=== PATIENT | female | born 1985 | race Caucasian/White ===

== ENCOUNTER 2020-06-30 08:09 | Outpatient (REF) | payer MEDICAID, SELFPAY ==
--- NOTE | 2020-06-30 | US_ITS ---
EXAMINATION: US ABDOMEN COMPLETE CLINICAL INFORMATION: Epigastric pain. COMPARISON: None TECHNIQUE: Real-time imaging of the abdominal viscera. FINDINGS: PANCREAS: Normal. ABDOMINAL AORTA: The proximal, mid, and distal segments are normal in caliber. INFERIOR VENA CAVA: Visualized portions are normal. LIVER: Normal. The liver is normal in size. The liver contour is normal. Parenchymal echogenicity is normal. No focal hepatic lesion. There is no intrahepatic biliary duct dilatation seen. GALLBLADDER: Normal. The gallbladder is physiologically distended without evidence of stones, sludge, polyps, wall thickening or pericholecystic fluid. COMMON BILE DUCT: Normal in caliber measuring 0.5 cm in diameter. RIGHT KIDNEY: Normal. No hydronephrosis. No renal calculi or focal parenchymal lesions. The kidney measures 10.6 cm in maximum dimension. LEFT KIDNEY: Normal. No hydronephrosis. No renal calculi or focal parenchymal lesions. The kidney measures 9.4 cm in maximum dimension. SPLEEN: Normal. The spleen measures 10.5 cm in maximum dimension. FREE FLUID: None. US/US abdomen complete IMPRESSION: Unremarkable complete abdomen ultrasound.
== END 2020-06-30 08:10 | disposition home or self-care (01) ==
LOC: HO.US 08:09
PROVIDERS: Visit Provider Internal Medicine
DX: R10.13 Epigastric pain (principal)
CPT/HCPCS: 76700

== ENCOUNTER 2023-03-14 11:54 | Emergency (ER) | payer MEDICAID, SELFPAY ==
--- NOTE | 2023-03-14 11:57 | ED_ITS ---
HPI - General Adult General Chief complaint: Upper Respiratory Symptoms Stated complaint: SOB/chest tightness/body aches Time Seen by Provider: 03/14/23 14:18 Source: patient Mode of arrival: ambulatory Limitations: no limitations History of Present Illness HPI narrative: Patient is a 37 year old assigned female at with no reported medical history presenting to the emergency department today with a cough and body aches. Patient states that over the last 6 days she has had a cough and body aches. Patient denies any dizziness, lightheadedness, abdominal pain, nausea, vomiting, fever, chills, blurry vision, double vision, loss of vision, chest pain, difficulty breathing, shortness of breath, back pain, night sweats, pain with urination, increased urinary frequency, increased urinary urgency, blood in her urine or stool, syncope or a near syncopal episode, recent trauma or falls, bowel incontinence, bladder incontinence, bowel retention, bladder retention, or any other complaints at this time. Onset (ago): day(s) (6) Severity: mild Severity scale (1-10): 3 Quality: aching Pain Consistency: constant Relieving factors: none Exacerbating factors: none Associated symptoms: cough Treatments prior to arrival: none Related Data Previous Rx's Medication Instructions Recorded benzonatate 100 mg capsule 100 mg PO BID PRN cough 7 days #14 03/14/23 caps Allergies Allergy/AdvReac Type Severity Reaction Status Date / Time No Known Allergies Allergy Verified 03/14/23 11:57 [No Known Allergies*] Review of Systems Constitutional: Constitutional: Reports no additional constitutional complaints, Reports body ache(s), Denies chills, Denies fever(s) and Denies night sweats Eyes: Eyes: Reports no additional eye complaints, Denies blurry vision, Denies change in vision, Denies diplopia, Denies eye discharge, Denies loss of vision and Denies eye pain ENT: Denies dizziness Cardiovascular: Cardiovascular: Reports no additional cardiovascular c omplaints, Denies chest pain, Denies lightheadedness, Denies Loss of Consciousness and Denies dyspnea Respiratory: Respiratory: Reports no additional respiratory complaints, Reports cough and Denies dyspnea Gastrointestinal: Gastrointestinal: Reports no additional gastrointestinal complaints, Denies abdominal pain, Denies melena, Denies hematochezia, Denies change in bowel habits and Denies change in stool character Genitourinary: Genitourinary: Denies hematuria, Denies urinary frequency, Denies dysuria, Denies urinary incontinence, Denies urinary hesitancy and Denies urinary urgency Musculoskeletal: Musculoskeletal: Reports no additional musculoskeletal complaints, Denies numbness and Denies tingling Neurologic: Denies dizziness, Denies loss of vision, Denies numbness and Denies tingling Psychiatric: Psychiatric: Reports no additional psychiatric complaints Endocrine: Endocrine: Reports no additional endocrine complaints Hematologic/Lymphatic: Hematologic/Lymphatic: Reports no additional hematologic/lymphatic complaints Allergic/Immunologic: Allergic/Immunologic: Reports no additional allergic/immunologic complaints [facility] Past Medical History Attestation statement: The following information was validated with the patient. Source: old records reviewed and nursing notes reviewed Social History Social History Advance Directives: No Advance Directives Information Provided: Yes Physical Exam ED Vital Signs: Vital Signs - 24 hr 03/14/23 11:58 Temperature 99.1 F Pulse Rate 99 Respiratory Rate 19 Blood Pressure 123/75 Pulse Oximetry 99 BMI result Body Mass Index 27.4 Const General: cooperative, no acute distress, alert and awake Nutritional Appearance: well nourished Orientation/consciousness: patient oriented x3 Limitations: no limitations HENMT Head: Yes normal to inspection and Yes atraumatic Ears: hearing grossly normal bilaterally and external ears normal General nose exam: Normal external nose present, no nasal discharge noted and no epistaxis Face and sinus: Yes normal facial exam, No abrasion and No laceration Mouth: Normal oral and palatal mucosa present, no drooling and no muffled voice Eyes General: appearance normal, both eyes and all related structures Periorbital: periorbital findings normal Eyelids: Yes eyelids normal Conjunctivae: conjunctivae normal Pupils: Equal, round and reactive pupils present EOM: EOMs intact bilaterally Neck Neck: Yes normal visual inspection, Yes full ROM and Yes no lymphadenopathy Chest Chest palpation & inspection: normal inspection of the chest Resp Effort & Inspection: normal respiratory effort and able to speak in complete sentences Auscultation: clear to auscultation bilaterally GI Inspection: Yes normal to inspection Neuro General: patient oriented x3 and moves all extremities Cranial nerves: Yes Equal, round and reactive pupils present Cognition (Neuro): normal cognition Motor exam (neuro): 5/5 motor strength present throughout Sensory Exam: Normal double simultaneous stimulation for sensation Coordination: [id number] test normal Extrem General: Yes normal to inspection, Yes full ROM and Yes capillary refill normal Psych Appearance: grossly normal Mental Status: mental status grossly normal Affect: normal affect Attitude: cooperative Thought process: Normal thought process present Thought content: Normal thought content present Insight: Good insight present (Psych) Course Course Course Narrative: This is an RME: Additional HPI, ROS, PE not included below will be deferred to primary provider. Patient is a 37 year old female with no PMH presents with 6 days of body aches, sore throat, and headache behind her eyes. Patient reports worsening dry cough and pain with breathing. Plan: labs, imaging Medical Decision Making Medical Decision Making [facility] Narrative: Patient is a 37 year old assigned female at with no reported medical history presenting to the emergency department today with a cough and body aches . Patient's physical exam was unremarkable. Patient's blood work was unremarkable. Patient's rapid COVID-19 test was negative. Patient's Influenza test was positive. Patient's EKG was unremarkable. I explained my physical exam findings as well as all test results to the patient. I answered all questions asked by the patient. I stressed the importance of the patient taking her medication as prescribed. I stressed the importance of the patient following up with her primary care provider. I stressed the importance of the patient returning to the emergency department immediately if her symptoms were to worsen or if she were to develop any dizziness, shortness of breath, difficulty breathing, chest pain, blurry vision, loss of vision, nausea, vomiting, abdominal pain, fever, chills, back pain, or any other complaints. Patient verbalized agreement and understanding with this treatment plan and discharge. Differential Diagnosis Differential Diagnoses: The differential diagnosis associated with the presentation includes COVID-19 Influenza CAP Viral illness URI Admission/Observation Consideration of admission/observation: Escalation of care including admiss ion/observation considered Patient would have been admitted to the hospital had her work up had any findings where hospital admission was appropriate and her clinical presentation warranted hospital admission. Lab Data [facility] Lab Attestation statement: I reviewed the patient's lab results. My interpretation of these studies and their corresponding values is that they are grossly normal. 03/14/23 12:12 03/14/23 12:12 Labs: Lab Results 03/14/23 03/14/23 03/14/23 Range/Units 12:12 12:12 12:12 WBC 8.6 (4.8-10.8) X10*3/uL RBC 4.23 (4.20-5.50) X10*6/uL Hgb 12.0 (12.0-16.0) g/dl Hct 36.4 L (37.0-47.0) % MCV 86.1 (80.0-98.0) fL MCH 28.4 (27.0-33.0) pg MCHC 33.0 (31.0-35.0) g/dl RDW 12.7 (11.0-16.0) % Plt Count 218 (160-400) X10*3/uL MPV 9.1 L (9.4-12.3) fL Immature Gran % (Auto) 0.2 (0.0-0.4) % Neut % (Auto) 83.9 H (45-73) % Lymph % (Auto) 11.9 L (20-40) % [place] % (Auto) 3.7 (2-11) % Eos % (Auto) 0.2 (0-4) % Baso % (Auto) 0.1 (0-2) % Lymph # (Auto) 1.0 L (1.2-4.9) X10*3/uL [place] # (Auto) 0.3 (0.1-1.2) X10*3/uL Eos # (Auto) 0.0 (0.0-0.4) X10*3/uL Baso # (Auto) 0.0 (0.0-0.2) X10*3/uL Abs Immat Gran (auto) 0.02 (0.00-0.03) X10*3/uL Absolute Neuts (auto) 7.2 (2.0-8.3) x10*3/uL Absolute Nucleated RBC 0.000 (0.0-0.012) X10*3/uL Nucleated RBC % (auto) 0.0 (0.0-0.2) /100WBC Sodium 138 (135-145) mmol/L Potassium 4.0 (3.3-5.1) mmol/L Chloride 105 (96-108) mmol/L Carbon Dioxide 23 (22-29) mmol/L Anion Gap 14 (12-20) BUN 9 (9-16) mg/dL Creatinine 0.77 (0.5-1.4) mg/dL Estim Creat Clear Calc 104.9 Estimated GFR > 60 Random Glucose 101 (60-115) mg/dL Calcium 9.5 (8.4-10.2) mg/dL Magnesium 2.1 (1.6-2.6) mg/dL Total Bilirubin 0.3 (0.0-1.0) mg/dL AST 22 (5-31) U/L ALT 24 (0-31) U/L Alkaline Phosphatase 68 (39-117) U/L Troponin I High Sens (<3.5-17.0) ng/L Total Protein 8.0 (6.5-8.0) g/dL Albumin 4.3 (3.5-5.0) g/dL COVID-19 (YEVGENIY) (Negative) COVID-19 Clin Com Influenza Type A (TEZ) Negative (Negative) Influenza Type B (TEZ) Positive A (Negative) Influenza A & B Note See Note 03/14/23 03/14/23 Range/Units 12:12 12:12 WBC (4.8-10.8) X10*3/uL RBC (4.20-5.50) X10*6/uL Hgb (12.0-16.0) g/dl Hct (37.0-47.0) % MCV (80.0-98.0) fL MCH (27.0-33.0) pg MCHC (31.0-35.0) g/dl RDW (11.0-16.0) % Plt Count (160-400) X10*3/uL MPV (9.4-12.3) fL Immature Gran % (Auto) (0.0-0.4) % Neut % (Auto) (45-73) % Lymph % (Auto) (20-40) % [place] % (Auto) (2-11) % Eos % (Auto) (0-4) % Baso % (Auto) (0-2) % Lymph # (Auto) (1.2-4.9) X10*3/uL [place] # (Auto) (0.1-1.2) X10*3/uL Eos # (Auto) (0.0-0.4) X10*3/uL Baso # (Auto) (0.0-0.2) X10*3/uL Abs Immat Gran (auto) (0.00-0.03) X10*3/uL Absolute Neuts (auto) (2.0-8.3) x10*3/uL Absolute Nucleated RBC (0.0-0.012) X10*3/uL Nucleated RBC % (auto) (0.0-0.2) /100WBC Sodium (135-145) mmol/L Potassium (3.3-5.1) mmol/L Chloride (96-108) mmol/L Carbon Dioxide (22-29) mmol/L Anion Gap (12-20) BUN (9-16) mg/dL Creatinine (0.5-1.4) mg/dL Estim Creat Clear Calc Estimated GFR Random Glucose (60-115) mg/dL Calcium (8.4-10.2) mg/dL Magnesium (1.6-2.6) mg/dL Total Bilirubin (0.0-1.0) mg/dL AST (5-31) U/L ALT (0-31) U/L Alkaline Phosphatase (39-117) U/L Troponin I High Sens < 2.7 (<3.5-17.0) ng/L Total Protein (6.5-8.0) g/dL Albumin (3.5-5.0) g/dL COVID-19 (YEVGENIY) Negative (Negative) COVID-19 Clin Com See Note Influenza Type A (TEZ) (Negative) Influenza Type B (TEZ) (Negative) Influenza A & B Note Independent Interpretation I performed an independent interpretation of an: EKG Interpretation: Vent. Rate: 097 BPM ? ? Atrial Rate: 097 BPM P-R Int: 134 ms? QRS Dur: 076 ms QT Int: 336 ms ? ? ? P-R-T Axes: 044 048 036 degrees QTc Int: 426 ms ? Normal sinus rhythm Normal ECG No previous ECGs available DD/ 1202 Prescription Management I considered prescription management with: Other (cough suppressant) Discharge Plan Discharge Clinical Impression: Influenza Patient Disposition: Home, Self-Care Instructions: Influenza (DC) Additional Instructions: Follow up with your primary care provider. Return to the emergency department immediately if your symptoms worsen or if you develop any dizziness, shortness of breath, difficulty breathing, chest pain, blurry vision, loss of vision, nausea, vomiting, abdominal pain, fever, chills, back pain, or any other complaints. Prescriptions: New benzonatate 100 mg capsule 100 mg PO BID PRN (Reason: cough) 7 Days Qty: 14 0RF Referrals: Aniket Christianson MD [Primary Care Provider] - Stand Alone Forms: Work/School Release Interventions: ED Discharge Assessment Last Done: 03/14/23 15:02 Discharge Date/Time: 03/14/23 15:02 Print Language: Nauruan
[2023-03-14 11:58] VITALS: BP 123/75; PULSE 99; RESP 19; TEMP 37.3; O2SAT 99; BMI 27.4
== END 2023-03-14 15:02 | disposition home or self-care (01) ==
PROVIDERS: Emergency Provider Emergency Medicine; PCP Internal Medicine
DX: J11.1 Influenza due to unidentified influenza virus with other respiratory manifestations (principal); R07.89 Other chest pain; R06.02 Shortness of breath; R05.9 Cough, unspecified; M79.10 Myalgia, unspecified site; Z20.822 Contact with and (suspected) exposure to COVID-19; Z20.828 Contact with and (suspected) exposure to other viral communicable diseases; Z79.899 Other long term (current) drug therapy
CPT/HCPCS: 36415; 80053; 83735; 84484; 85025; 87502; 87635; 93005; 99283

== ENCOUNTER → 2023-03-14 12:00 | Outpatient (BNV) | payer MEDICAID, SELFPAY | PROVIDERS: Emergency Provider Emergency Medicine; PCP Internal Medicine; Visit Provider Internal Medicine Cardiovascular Disease | DX: R07.9 Chest pain, unspecified (principal); R06.02 Shortness of breath | CPT/HCPCS: 93010 ==

== ENCOUNTER 2023-08-25 11:35 | Outpatient (REF) | payer MEDICAID, SELFPAY ==
[2023-08-25 13:11] LABS: MANUAL DIFF FLAG NO
[2023-08-25 13:34] LABS: Basophils Percent Auto 0.5 % (0-2); Eosinophils Absolute Auto 0.1 X10*3/uL (0.0-0.4); Eosinophils Percent Auto 2.1 % (0-4); Hematocrit 37.2 % (37.0-47.0); Hemoglobin 12.3 g/dl (12.0-16.0); Imm Gran Abs Auto 0.03 X10*3/uL (0.00-0.03); Imm Gran Pct Auto 0.5 % (0.0-0.4); Lymphocytes Absolute Auto 1.5 X10*3/uL (1.2-4.9); Lymphocytes Percent Auto 21.9 % (20-40); Mean Corpuscular HGB Conc 33.1 g/dl (31.0-35.0); Mean Corpuscular Hemoglobin 28.3 pg (27.0-33.0); Mean Corpuscular Volume 85.7 fL (80.0-98.0); Mean Platelet Volume 9.6 fL (9.4-12.3); Monocytes Absolute Auto 0.5 X10*3/uL (0.1-1.2); Neutrophils Absolute Auto 4.5 x10*3/uL (2.0-8.3); Platelet Count 278 X10*3/uL (160-400); Red Blood Count 4.34 X10*6/uL (4.20-5.50); Red Cell Distribution Width 12.2 % (11.0-16.0); White Blood Count 6.6 X10*3/uL (4.8-10.8)
[2023-08-25 13:44] LABS: Estimated Average Glucose 108 mg/dL; Hemoglobin A1c % 5.4 % (<6.0)
[2023-08-25 14:07] LABS: Alanine Aminotransferase 12 U/L (0-31); Albumin Level 4.6 g/dL (3.5-5.0); Alkaline Phosphatase 76 U/L (39-117); Anion Gap 13 (12-20); Aspartate Amino Transferase 18 U/L (5-31); Bilirubin Direct 0.2 mg/dL (0.0-0.5); Bilirubin Total 0.3 mg/dL (0.0-1.0); Blood Urea Nitrogen 7 mg/dL (9-16); Calcium 9.8 mg/dL (8.4-10.2); Carbon Dioxide 26 mmol/L (22-29); Chloride 104 mmol/L (96-108); Cholesterol 189 mg/dL (<200); Estimated Glomerular Filt Rate > 60; Glucose Random 93 mg/dL (60-115); HDL Cholesterol 52 mg/dL (>40); LDL Cholesterol Calculated 116 mg/dL (<100); Potassium 4.1 mmol/L (3.3-5.1); Sodium 139 mmol/L (135-145); Total Protein 8.5 g/dL (6.5-8.0); Triglycerides 105 mg/dL (<150)
[2023-08-25 14:23] LABS: TSH reflex Free T4 0.48 uIU/mL (0.32-4.0)
[2023-08-25 18:38] LABS: Appearance Urine Clear; Color Urine Yellow; Glucose Urine UA Negative (Negative); Leukocyte Esterase Urine Large (3+) (Negative); Nitrite Urine Negative (Negative); Specific Gravity - Urine <= 1.005 (1.005-1.025); UMIC TRIGGER UACC YES; Urine Blood Small (1+) (Negative); Urine Ketones Negative (Negative); Urine Protein Negative (Neg-Trace)
[2023-08-25 20:51] LABS: Bacteria Urine 2+ (None Seen); Hyaline Casts Urine 0-2 /LPF (0-2); RBC Urine 0-2 /HPF (0-2); Squamous Epithelial Cell Urine 0-2 /HPF (0-2); UACC Culture Trigger YES; WBC Urine 21-50 /HPF (0-5)
[2023-08-26 18:52] LABS: RPR Rapid Plasma Reagin NON-REACTIVE (NON-REACTIVE)
[2023-08-28 13:49] LABS: HIV RNA PCR Qn Copies Not Detected Copies/mL; HIV RNA PCR Qn Log Copies Not Detected Log cps/mL
== END 2023-08-25 11:36 | disposition home or self-care (01) ==
LOC: HO.HHCL 11:35
PROVIDERS: Student in an Organized Health Care Education/Training Program; Visit Provider Nurse Practitioner Family
DX: Z00.00 Encounter for general adult medical examination without abnormal findings (principal); N92.6 Irregular menstruation, unspecified; R30.0 Dysuria
CPT/HCPCS: 36415; 80053; 80061; 81001; 82248; 83036; 84443; 85025; 86592; 87086; 87088; 87186; 87536; 87900

== ENCOUNTER 2024-07-05 15:43 | Outpatient (REF) | payer MEDICAID, SELFPAY ==
[2024-07-05 17:54] LABS: HCG Quantitative < 2 mIU/mL; TSH reflex Free T4 0.52 uIU/mL (0.32-4.0)
[2024-07-06 20:18] LABS: Trichomonas vaginalis RNA NOT DETECTED (NOT DETECTED)
== END 2024-07-05 15:44 | disposition home or self-care (01) ==
LOC: HO.HHCL 15:43
PROVIDERS: Visit Provider Nurse Practitioner
DX: N92.6 Irregular menstruation, unspecified (principal)
CPT/HCPCS: 36415; 84443; 84702; 87661

== ENCOUNTER 2024-12-18 12:06 | Outpatient (REF) | payer MEDICAID, SELFPAY ==
[2024-12-18 13:55] LABS: Anion Gap 11 (12-20); Blood Urea Nitrogen 7 mg/dL (9-16); Calcium 9.4 mg/dL (8.4-10.2); Carbon Dioxide 25 mmol/L (22-29); Chloride 105 mmol/L (96-108); Cholesterol 164 mg/dL (<200); Estimated Glomerular Filt Rate > 60; Glucose Random 92 mg/dL (60-115); HDL Cholesterol 50 mg/dL (>40); LDL Cholesterol Calculated 102 mg/dL (<100); Potassium 3.7 mmol/L (3.3-5.1); Sodium 137 mmol/L (135-145); Triglycerides 64 mg/dL (<150)
--- OUTSIDE RECORDS SUMMARY | 2024-12-18 14:50 | XMS_ITS | Encounter Summary ---
Author Organization [employer] [facility] Address [address] 7t [place] [address] Care Team Providers Care Mat Inspector Name Role Phone Madyson Sharma NP Primary Care Provider [phone] Reason for Visit * Reason Comments transfer patienr Encounter Details Date Type Department Care Team ([facility] st Contact Info) Description 12/17/2024 1:00 PM EDT Office Visit [facility] [address] [place] [address] Madyson Sharma NP [address] [place] [address] Encounter to establish care (Primary Dx); Encounter for health-related screening; Screening for colon cancer; Complicated grief; Overweight (BMI 25.0-29.9); Situational depression Social History Tobacco Use Types Packs/Day Years Used Date Smoking Tobacco: Never Smokeless Tobacco: Never Alcohol Use Standard Drinks/Week Comments Yes 0 (1 standard drink = 0.6 oz pur e alcohol) on ocassion Alcohol Answer Date Recorded How often do you have a drink containing alcohol ? 1 12/17/2024 How many drinks containing a lcohol do you have on a typical day when you are drinking? 0 12/17/2024 How often do you have six or more drinks on one occasion? 0 12/17/2024 Depression Answer Date Recorded Patient Health Questionnaire-9 Score 16 12/17/2024 Patient Health Questionnaire-9 Score 16 12/17/2024 Last PHQ-9: Questionnaire Data Not on file 0 12/17/2024 Housing Stability Answer Date Recorded What is your housing situation today? I have kemar moctezuma 12/17/[address] you li ve. Do you have problems with any of the following? None of the above 12/17/2024 Food Insecurity Answer Date Recorded Within the past 12 months, y ou worried that your food would run out before you got money to buy more: Sometimes True 2024 Within the past 12 months,th e food you bought just didn't last and you didn't have enough money to get more: Sometimes True 12/17/2024 Transportation Answer Date Recorded In the past 12 months, has l ack of transportation kept you from medical appts, meetings, work or from getting things needed for daily living? No 12/17/2024 Utilities Answer Date Recorded In the past 12 months, has t he electric, gas, oil or water company threatened to shut off services in your home? Yes 12/17/2024 Depression Answer Date Recorded Patient Health Questionnaire-2 Score 4 12/17/2024 Internet Access Answer Date Recorded Internet Access Q1 Yes 12/17/2024 Internet Access Q2 Not on file 12/17/2024 Comments Unknown Sex and Gender Information Value Date Recorded Sex Assigned at Female 07/05/2022 10:31 AM EDT Legal Sex Female 10:31 AM EDT Gender Identity Female 07/05/2022 10:31 AM EDT Sexual Orientation Choose not to disclose 2021 10:31 AM EDT documented as of this encounter Last Filed Vital Signs Vital Sign Reading Time Taken Comments Blood Pressure 114/70 12/17/2024 1:20 PM EDT Pulse 83 12/17/2024 1:20 PM EDT Temperature 36.9 ??C (98.4 ??F) 12/17/2024 1:20 PM ED T Respiratory Rate 20 12/17/2024 1:20 PM EDT Oxygen Saturation 99% 12/17/2024 1:20 PM EDT Inhaled Oxygen Concentration - - Weight 76.1 kg (167 lb 12.8 oz) 12/17/2024 1:20 PM EDT Height 167.6 cm (5' 6 ) 12/17/2024 1:20 PM EDT Body Mass Index 27.08 12/17/2024 1:20 PM EDT documented in this encounter Progress Notes * Madyson Sharma NP - 12/17/2024 1:00 PM EDT Subjective Patient ID: Alicia Alcazar is a 39 y.o. female who presents for transfer patient visit. Denies recent illness, injury or hospitalization. Previous PCP Pratibha WILSON. HPI Concerns: none Lost her father in June and uncle in recent weeks Was approved for 2 months off from work, but she is not ready to return. Work is requesting medicaldocumentation for approval of more time off. 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 control method: male condoms; no active partner at this time. Periods have become more regular OB Hx: OB History Para Term AB Living 11 5 5 0 6 5 SAB IAB Ectopic Multiple Live Births 6 0 0 0 0 Mental health: down ; Uses distraction; going to druze, traveling, singing and dancing. Was taking adderall for ADHD but dii not like the withdrawal Routine Health Maintenance Optometry: unable to recall; vision feels fie Dental: established with dental home [facility]. Last seen last month Breast CA: Routine mammograms starting at 45 y/o per [facility] Dexa scan: Cervical CA: has history of abnormal pap tests. Has appointment at [facility] 12/20 for pap test Colon CA: discussed screening with cologrenato due to extensive family history of colon cancer. Lung CA: N/A never smoker Outstanding IZ: t-dap: offer at next visit Family History Problem Relation Name Age of Onset Hypertension Mother Hypertension Father Breast cancer Mother's Sister Colon cancer Mother's Sister Colon cancer Mother's Brother Bone cancer Maternal Grandmother Colon cancer Maternal Grandmother Colon cancer Maternal Grandfather Review of Systems Constitutional: Negative. Negative for chills and fever. Respiratory: Negative for chest tightness and shortness of breath. Cardiovascular: Negative for chest pain. Gastrointestinal: Negative for abdominal pain, constipation, diarrhea and nausea. Genitourinary: Negative for dysuria. Musculoskeletal: Negative for arthralgias, back pain, myalgias and neck pain. Skin: Negative. Negative for rash and wound. Neurological: Negative for weakness, light-headedness and headaches. Psychiatric/Behavioral: Positive for behavioral problems. Negative for confusion, decreased concentration, sleep disturbance and suicidal ideas. The patient is not nervous/anxious. Objective: Visit Vitals BP 114/70 (BP Location: Right arm, Patient Position: Sitting, BP Cuff Size: Adult) Pulse 83 Temp 98.4 ??F (36.9 ??C) (Oral) Resp 20 Ht 5' 6 (1.676 m) Wt 167 lb 12.8 oz (76.1 kg) SpO2 99% BMI 27.08 kg/m?? Smoking Status Never BSA 1.88 m?? Patient Active Problem List Diagnosis Urinary tract infection Cervical intraepithelial neoplasia grade 1 No current outpatient medications on file. Immunization History Administered Date(s) Administered Influenza injectable quadrivalent preservative free 05/24/2016, 08/03/2017 MMR 04/18/2017 [employer] Covid-19 Vaccine 12+ 02/04/2021 Tdap 06/21/2014, 05/24/2016, 04/10/2018 Physical Exam Vitals reviewed. Constitutional: General: She is not in acute distress. Appearance: Normal appearance. She is not ill-appearing. HENT: Head: Normocephalic and atraumatic. Right Ear: External ear normal. Left Ear: External ear normal. Nose: Nose normal. Eyes: General: No scleral icterus. Extraocular Movements: Extraocular movements intact. Cardiovascular: Rate and Rhythm: Normal rate and regular rhythm. Pulses: Normal pulses. Heart sounds: Normal heart sounds. Pulmonary: Effort: Pulmonary effort is normal. No respiratory distress. Breath sounds: Normal breath sounds. Musculoskeletal: General: Normal range of motion. Cervical back: Normal range of motion. Skin: General: Skin is warm and dry. Neurological: General: No focal deficit present. Mental Status: She is alert and oriented to person, place, and time. Gait: Gait normal. Psychiatric: Mood and Affect: Mood normal. Behavior: Behavior normal. Assessment/Plan: Problem List Items Addressed This Visit None Visit Diagnoses Encounter to establish care - Primary -personal medical, surgical, and medication histories reviewed along with family hx -routine health maintenance discussed -she is encouraged to provide results of upcoming pap for updating of her records -low cardiovascular risk -healthy social behaviors encouraged -anticipatory guidance reviewed: diet, exercise Encounter for health-related screening Relevant Orders Hepatitis B Core Antibody, Total Hepatitis B Surface Antibody, Qualitative Hepatitis B surface antigen, EIA Hepatitis C Antibody with Reflex to HCV, RNA, Quantitative, Real-Time PCR HIV-1/2 Antigen and Antibodies, Fourth Generation, with Reflexes Screening for colon cancer -counseled on 13% false positive and 8% false negative rate and is aware that if the test is positive a diagnostic colonoscopy should be pursued within 3-6 months. -patient informed of need to repeat test in 3 years if negative result -cologuard order placed Relevant Orders Cologuard?? colon cancer screening Complicated grief - clinical consulted to assist with coping mechanisms and establishing with therapist Overweight (BMI 25.0-29.9) Dietary Recommendations: Fruits, vegetables, whole grains, protein foods, and fat-free or low-fat dairy products are healthychoices. Eat different types of protein foods in your diet. This can include seafood, lean meats, poultry, beans, peas, lentils, nuts, seeds, soy products, and eggs. Limit foods and beverages higher in added sugars, saturated fat, and sodium. Exercise Recommendations: At least 150 minutes of moderate-intensity physical activity per week, or an equivalent combinationof moderate- and vigorous-intensity activity Relevant Orders Lipid Panel, Standard Basic Metabolic Panel Situational depression -secondary to grief; no HI/SI -Patient Health Questionnaire-9 Score: 16 (12/17/2024 2:39 PM) Patient Health Questionnaire-2 Score: 4 (12/17/2024 2:39 PM) Thoughts that you would be better off or hurting yourself in some way: Not at all (12/17/2024 2:39 PM) -discussed non-pharm measures - clinican in to speak with patient -advised to bring FML paperwork to medical records Follow-up 3 months or sooner as needed Icelandic Translation: Patient is bilingual and declines translation services documented in this encounter Plan of Treatment Upcoming Encounters Date Type Department Care Team (Late st Contact Info) Description 03/20/2025 9:30 AM EDT Office Visit [facility] [address] [place] [address] Madyson Sharma NP [address] [place] [address] Scheduled Orders Name Type Priority Associated Diagnoses Orde r Schedule Hepatitis B Core Antibody, Total Lab Routine Encounter for health-related screening Expected: 12/17/2024 (Approximate), Expires: 12/17/2025 Hepatitis B Surface Antibody, Qualitative Lab Routine Encounter for health-related screening Expected: 12/17/2024 (Approximate), Expires: 12/17/2025 Hepatitis B surface antigen, EIA Lab Routine Encounter for health-related screening Expected: 12/17/2024 (Approximate), Expires: 12/17/2025 Hepatitis C Antibody with Reflex to HCV, RNA, Quantitative, Real-Time PCR Lab Routine Encounter for health-related screening Expected: 12/17/2024 (Approximate), Expires: 12/17/2025 HIV-1/2 Antigen and Antibodies, Fourth Generation, with Reflexes Lab Routine Encounter for health-related screening Expected: 12/17/2024 (Approximate), Expires: 12/17/2025 Cologuard?? colon cancer screening Lab Routine Screening for colon cancer Ordered: 12/17/2024 documented as of this encounter Procedures Procedure Name Priority Date/Time Associated Diagnosis Comments LIPID PANEL, STANDARD Routine 12/18/2024 12:08 PM EDT Overweight (BMI 25.0-29.9) BASIC METABOLIC PANEL Routine 12/18/2024 12:08 PM EDT Overweight (BMI 25.0-29.9) documented in this encounter Results * (ABNORMAL) Basic Metabolic Panel (12/18/2024 12:08 PM EDT) [facility] Sodium 137 135 - 145 mmol/L [facility] Potassium 3.7 3.3 - 5.1 mmol/L [facility] Chloride 105 96 - 108 mmol/L [facility] Carbon Dioxide 25 22 - 29 mmol/L [facility] Anion Gap 11(L) 12 - 20 [facility] Urea Nitrogen (BUN) 7(L) 9 - 16 mg/dL [facility] Creatinine, Serum 0.65 0.5 - 1.4 mg/dL [facility] Estimated Glomerular Filt Rate >60 [facility] Comment:Chronic Kidney Disea se: Estimated GFR < 60 mL/min/1.21b2Uzrhpb Kidney Disease: Estimated GFR < 15 mL/min/1.73m2 Glucose 92 60 - 115 mg/dL [facility] Calcium 9.4 8.4 - 10.2 mg/dL [facility] Blood Venous blood specimen / Unknown 12/18/2024 12:08 PM EDT 12/18/2024 1:10 PM EDT us Madyson Sharma [employer] LAB BLOOD ORDERABLES Final Resu lt [facility] [address] [place] [address] [phone] * (ABNORMAL) Lipid Panel, Standard (12/18/2024 12:08 PM EDT) Triglycerides 64 <150 mg/dL [facility] Comment:Desirable Triglyceri de: less than 150 mg/dLBorderline High Triglyceride 150-199 mg/dLHigh Triglyceride: 200-499 mg/dLVery High Triglyceride: greater than or equal to 5OO mg/dL Cholesterol 164 <200 mg/dL [facility] Comment:Desirable Cholestero l: less than 200 mg/dLBorderline High Cholesterol: 200-239 mg/dLHigh Cholesterol: greater than 239 mg/dL LDL Cholesterol Calculated 102(H) <100 mg/dL [facility] Comment:Desirable LDL: less than 100 mg/dLNear Optimal/Above Optimal LDL: 110- 129 mg/dLBorderline High LDL: 130-159 mg/dLHigh LDL: 160-189 mg/dLVery High LDL: greater than or equal to 190 mg/dL HDL Cholesterol 50 >40 mg/dL [facility] Comment:Desirable HDL: great er than 40 mg/dL Note: This HDL assay may give artificially low results in patients with liver disease. Blood Venous blood specimen / Unknown 12/18/2024 12:08 PM EDT 12/18/2024 1:10 PM EDT us Madyson Sharma NP LAB BLOOD ORDERABLES Final Resu lt [facility] [address] [place] [address] [phone] documented in this encounter Visit Diagnoses Diagnosis Encounter to establish care- Primary Encounter for health-related screening Screening for colon cancer Special screening for malignant neoplasms, colon Complicated grief Overweight (BMI 25.0-29.9) Overweight Situational depression documented in this encounter Additional Health Concerns Assessment Noted Time PHQ-9 Depression Total Score: 16 025 2:39 PM EDT documented as of this encounter Care Teams Mat Inspector Relationship Specialty Start Date End Date Madyson Sharma NP [address] [place] [address] PCP - General Family Medicine 04/20/24 documented as of this encounter
--- OUTSIDE RECORDS SUMMARY | 2024-12-18 14:50 | XMS_ITS | Encounter Summary ---
Author Organization [employer] [facility] Address [address] [place] [address] Care Team Providers Care Education Administrative Assistant Name Role Phone Pratibha Quintana Primary Care Provider [phone] Madyson Sharma NP Primary Care Provider [phone] Reason for Visit * Reason Onset Date Comments Nurse Triage 08/24/2023 Encounter Details Date Type Department Care Team ([facility] st Contact Info) Description 08/24/2023 Telephone [facility] [address] [place], [place] [phone] Pratibha Quintana FNP [address] [place] [address] Nurse Triage Social History Tobacco Use Types Packs/Day Years Used Date Smoking Tobacco: Never Smokeless Tobacco: Never Alcohol Use Standard Drinks/Week Comments Never 0 (1 standard drink = 0.6 oz pur e alcohol) Depression Answer Date Recorded Patient Health Questionnaire-9 Score 1 09/01/2022 Housing Stability Answer Date Recorded What is your housing situation today? I have kemar moctezuma 07/11/[address] you li ve. Do you have problems with any of the following? None of the above 07/11/2023 Food Insecurity Answer Date Recorded Within the past 12 months, y ou worried that your food would run out before you got money to buy more: Never True 07/11/2023 Within the past 12 months,th e food you bought just didn't last and you didn't have enough money to get more: Never True 02/2023 Transportation Answer Date Recorded In the past 12 months, has l ack of transportation kept you from medical appts, meetings, work or from getting things needed for daily living? No 07/11/2023 Utilities Answer Date Recorded In the past 12 months, has t he [employer], gas, oil or water [employer] threatened to shut off services in your home? No 07/11/2023 Depression Answer Date Recorded Patient Health Questionnaire-2 Score 0 09/01/2022 Comments Unknown Sex and Gender Information Value Date Recorded Sex Assigned at Female 07/05/2022 10:31 AM EDT Legal Sex Female 10:31 AM EDT Gender Identity Female 07/05/2022 10:31 AM EDT Sexual Orientation Choose not to disclose 2021 10:31 AM EDT documented as of this encounter Miscellaneous Notes * Telephone Encounter - Nona Hassan RN - 08/24/2023 10:20 AM EST Triage call Pt reports burning with urination, frequency, foul odor and dark yellow cloudy urine. Pt reports drinking adequate fluids. Pt reports hx of a UTI which caused kidney infection. Advised tocome to [facility] today to be seen by provider. Pt agrees with disposition and home care reviewed including increasing liquids with cran juice and sitz bath. Protocol Used: Urination Pain - Female (Adult) Protocol-Based Disposition: See in Office or Video Visit Today Video visit not offered Positive Triage Question: * Painful urination AND EITHER frequency or urgency * All higher-acuity triage questions were negative Care Advice Discussed: * Reassurance and Education - Possible Urine Infection * Drink Extra Fluids * Drink Extra Fluids - Extra Notes and Warnings * Cranberry Juice * Cranberry Juice - Extra Notes and Warnings * Warm Saline SITZ Baths - Twice Daily for Urination Pain * Warm Saline Sitz Bath - How to Make a SITZ Bath * Reasons To Call Back - Fever or back pain occurs - You become worse * Telephone Encounter - Marcelino Pete - 08/24/2023 9:22 AM EST Symptom: Urination Pain Outcome: Schedule an urgent appointment (within 1 hour) or talk to a nurse or provider soon Reason: Severe pain now documented in this encounter Plan of Treatment Upcoming Encounters Date Type Department Care Team (Late st Contact Info) Description 03/20/2025 9:30 AM EDT Office Visit [facility] [address] [place] [address] Madyson Sharma NP [address] [place] [address] documented as of this encounter Visit Diagnoses Not on filedocumented in this encounter Additional Health Concerns Assessment Noted Time PHQ-9 Depression Total Score: 1 09/01/20 22 2:16 PM EST documented as of this encounter Care Teams Education Administrative Assistant Relationship Specialty Start Date End Date Pratibha Quintana FNP [address] [place] [address] PCP - General Family Medicine 05/09/22 04/19/24 Mdayson Sharma NP [address] [place] [address] PCP - General Family Medicine 04/20/24 documented as of this encounter
--- OUTSIDE RECORDS SUMMARY | 2024-12-18 14:50 | XMS_ITS | Encounter Summary ---
Author Organization [facility] [facility] Address [address] 7[address] [place] [address] Care Team Providers Care Licensed Psychiatric Technician Name Role Phone Madyson Sharma TUSHAR Primary Care Provider [phone] Reason for Visit * Reason Onset Date Comments chartprep 12/13/2024 Encounter Details Date Type Department Care Team ([facility] st Contact Info) Description 12/13/2024 Telephone [facility] [address] [place] [address] Rk Valenzuela [place] chartprep Social History Tobacco Use Types Packs/Day Years [...] encounter Miscellaneous Notes * Telephone Encounter - Rk Valenzuela [place] - 12/13/2024 3:51 PM EDT Chart Prep Labs: done chlamydia and gonorrhea RNA Images: done Referrals: not applicable Vaccines due: yes Screenings: pap smear Overdue care gaps: SBIRT, SDOH, PHQ-9, MARY-7, Oral health screening, and Disability screen documented in this encounter Plan of Treatment Upcoming Encounters Date Type Department Care Team (Late st Contact Info) Description 03/20/2025 9:30 AM EDT Office Visit [facility] [address] [place] [address] Madyson Sharma NP [address] [place] [address] documented as of this encounter Visit Diagnoses Not on filedocumented in this encounter Additional Health Concerns Assessment Noted Time PHQ-9 Depression Total Score: 1 09/01/20 22 2:16 PM EST documented as of this encounter Care Teams Licensed Psychiatric Technician Relationship Specialty Start Date End Date Madyson Sharma NP [address] [place] [address] PCP - General Family Medicine 04/20/24 documented as of this encounter
--- OUTSIDE RECORDS SUMMARY | 2024-12-18 14:50 | XMS_ITS | Encounter Summary ---
Author Organization [employer] Address [address] [place] [address] Care Team Providers Care Pleating Supervisor Name Role Phone Madyson Sharma TUSHAR Primary Care Provider [phone] Encounter Details Date Type Department Care Team ([facility] st Contact Info) Description 09/03/2024 Orders Only [facility] [address] [place] [address] Arturo Art MD [address] [place] [address] Social History Tobacco Use Types Packs/Day Years Used Date Smoking Tobacco: Never Smokeless Tobacco: Never Alcohol Use Standard Drinks/Week Comments Never 0 (1 standard drink = 0.6 oz pur e alcohol) Depression Answer Date Recorded Patient Health Questionnaire-9 Score 1 09/01/2022 Housing Stability Answer Date Recorded What is your housing situation today? I have kemarunruly moctezuma 07/11/[address] you [...] AM EDT documented as of this encounter Plan of Treatment Upcoming Encounters Date Type Department Care Team (Late st Contact Info) Description 03/20/2025 9:30 AM EDT Office Visit [facility] [address] [place] [address] Madyson Sharma NP [address] [place] [address] documented as of this encounter Visit Diagnoses Not on filedocumented in this encounter Additional Health Concerns Assessment Noted Time PHQ-9 Depression Total Score: 1 09/01/20 22 2:16 PM EST documented as of this encounter Care Teams Pleating Supervisor Relationship Specialty Start Date End Date Madyson Sharma NP [address] [place] [address] PCP - General Family Medicine 04/20/24 documented as of this encounter
--- OUTSIDE RECORDS SUMMARY | 2024-12-18 14:50 | XMS_ITS | Encounter Summary ---
Author Organization [employer] [facility] Address [address] [place] [address] Care Team Providers Care Flower Cheniller Name Role Phone Madyson Sharma NP Primary Care Provider [phone] Encounter Details Date Type Department Care Team (Late st Contact Info) Description 12/13/2024 Telephone [facility] MEDICINE [address] [place], [place] [phone] Madyson Sharma NP [address] [place], [place] [phone] Social History Tobacco Use Types Packs/Day Years Used Date Smoking Tobacco: Never Smokeless Tobacco: Never Alcohol Use Standard Drinks/Week Comments Never 0 (1 standard drink = 0.6 oz pur e alcohol) Alcohol Answer Date Recorded How often do [...] your housing situation today? I have kemar jose elias 12/17/[address] you li [...] Description 03/20/2025 9:30 AM EDT Office Visit [facility] MED[facility]INE [address] [place] [address] Madyson Sharma NP [address] [place] [address] documented as of this encounter Visit Diagnoses Not on filedocumented in this encounter Additional Health Concerns Assessment Noted Time PHQ-9 Depression Total Score: 1 09/01/20 22 2:16 PM EST documented as of this encounter Care Teams Flower Cheniller Relationship Specialty Start Date End Date Madyson Sharma NP [address] [place] [address] PCP - General Family Medicine 04/20/24 documented as of this encounter
--- OUTSIDE RECORDS SUMMARY | 2024-12-18 14:50 | XMS_ITS | Clinical Summary ---
Author Organization [facility] Address [address] [place] [address] Care Team Providers Care Filter Cloth Maker Name Role Phone Madyson Sharma UTSHAR Primary Care Provider [phone] Allergies No known active allergies Medications * This document contains information received from the source organization and may not represent a complete record from that organization. Mapap 500 MG capsule TAKE 2 CAPSULES BY MOUTH EVERY 8 HOURS NEEDED FOR 3 DAYS 12/14/19 25 025 Discontinued(Me d list cleanup (will not trigger notification to Pharmacy)) ferrous sulfate 325 (65 Fe) MG tablet Take 325 mg by mouth. 01/15/20 025 Discontinued(Me d list cleanup (will not trigger notification to Pharmacy)) ibuprofen 800 MG tablet TAKE 1 TABLET WITH FOOD OR MILK EVERY 6 TO 8 HOURS NEEDED FOR 3 DAYS 12/14/19 25 025 Discontinued(Me d list cleanup (will not trigger notification to Pharmacy)) Active Problems Problem Noted Date Diagnosed Date Moderately severe depression 12/18/2024 Feeling grief 12/18/2024 Cervical intraepithelial neoplasia grade 1 12/17 Urinary tract infection 08/25/2023 Assessment & Plan (08/25/2023 11:02 PM EST): Pt w urinary symptoms of uncomplicated cystitis , neg CVA tendenress -urine dipstick today + blood small,LE small, nitrates neg -preg tets neg -UA w reflex to cx -pyridium macrobid BID x5 day -alarm signs and symptoms discussed Encounters * This document contains information received from the source organization and may not represent a complete record from that organization. Date Type Department Care Team Description 12/17/2024 1:00 PM EDT Office Visit [facility] MEDICINE [address] [place] [address] Madyson Sharma NP Encounter to establish care (Primary Dx); Encounter for health-related screening; Screening for colon cancer; Complicated grief; Overweight (BMI 25.0-29.9); Situational depression 12/17/2024 Travel 12/13/2024 Telephone [facility] MED[facility]INE [address] [place] [address] Rk Valenzuela [place] chartprep 12/13/2024 Telephone [facility] MEDICINE [address] [place] [address] Madyson Sharma NP 12/10/2024 Patient Outreach [facility] [address] [place] [address] Madyson Sharma NP Pre-visit Planning (SDOH unable to reach ) 12/10/2024 Travel 11/16/2024 Population Health Risk Score [facility] () Department [address] [place] [id number] Provider, Population Health Generic from Last 3 Months Immunizations Name Administration Dates Next Due Influenza injectable quadriv alent preservative free 08/03/2017,05/24/2016 MMR 04/18/2017 Pfizer Covid-19 Vaccine 12+ 02/04/2021 Tdap 04/10/2018,05/24/2016,06/21/2014 Family History Medical History Relation Name Comments Hypertension Father Colon cancer Maternal Grandfather Bone cancer Maternal Grandmother Colon cancer Maternal Grandmother Hypertension Mother Colon cancer Mother's Brother Breast cancer Mother's Sister Colon cancer Mother's Sister Relation Name Status Comments Father Maternal Grandfather Maternal Grandmother Mother Mother's Brother Mother's Sister Social History Tobacco Use Types Packs/Day Years Used Date Smoking Tobacco: Never Smokeless Tobacco: Never Tobacco Cessation:Counseling Given: Not Answered Alcohol Use Standard Drinks/Week Comments Yes 0 [...] not to disclose 2021 10:31 AM EDT Last Filed Vital Signs Vital Sign Reading [...] Mass Index 27.08 12/17/2024 1:20 PM EDT Plan of Treatment Upcoming Encounters Date Type Department Care Team (Late st Contact Info) Description 03/20/2025 9:30 AM EDT Office Visit [facility] MEDICINE [address] [place] [address] Madyson Sharma NP [address] [place] [address] Health Maintenance Due Date Last Done Comments HIV Screening 1985 Hepatitis C Screening 2003 Hepatitis B Vaccines (1 of 3 - 19+ 3-dose series) 2004 Pap Smear 2006 Cervical Cancer Screening 2015 HPV/Cotest 2015 COVID-19 Vaccine (2 - 2023-2 5 season) 2024 02/04/2021 Influenza Vaccine (#1) 2024 7, 05/24/2016 Depression Monitoring 06/18/2025 12/17/2024 , 12/17/2024 Alcohol/Substance Use Screening 12/17/2025 12/17/2024 Depression Screening 12/17/2025 12/17/2024, 12/17/2024 Family Planning (PISQ) 12/17/2025 12/17/2024 SDOH Screening 12/17/2025 12/17/2024 Tobacco Screening 12/17/2025 12/17/2024 DTaP/Tdap/Td Vaccines (4 - T d or Tdap) 04/10/2028 04/10/2018, 05/24/2016, 06/21/2014 Zoster Vaccines (1 of 2) 2035 RSV Patients and Patients Aged 60 years or older (1 - 1-dose 75+ series) 2060 HIB Vaccines Aged Out No longer eligi ble based on patient's age to complete this topic HPV Vaccines Aged Out No longer eligi ble based on patient's age to complete this topic Hepatitis A Vaccines Aged Out No long er eligible based on patient's age to complete this topic IPV Vaccines Aged Out No longer eligi ble based on patient's age to complete this topic Meningococcal Vaccine Aged Out No portillo jah eligible based on patient's age to complete this topic Pneumococcal Vaccine: Pediatrics (0 to 5 Years) and At-Risk Patients (6 to 49) Years) Aged Out No longer eligible b ased on patient's age to complete this topic RSV under 20 months Aged Out No longe r eligible based on patient's age to complete this topic Rotavirus Vaccines Aged Out No longer eligible based on patient's age to complete this topic Procedures Procedure Name Priority Date/Time Associated Diagnosis Comments BASIC METABOLIC PANEL Routine 12/18/2024 12:08 PM EDT Overweight (BMI 25.0-29.9) LIPID PANEL, STANDARD Routine 12/18/2024 12:08 PM EDT Overweight (BMI 25.0-29.9) from Last 3 Months Results * (ABNORMAL) Lipid Panel, Standard (12/18/2024 12:08 PM EDT) Triglycerides 64 <150 mg/dL [facility] Comment:Desirable Triglyceri de: less than 150 mg/dLBorderline High Triglyceride 150-199 mg/dLHigh Triglyceride: 200-499 mg/dLVery High Triglyceride: greater than or equal to 5OO mg/dL Cholesterol 164 <200 mg/dL [facility] Comment:Desirable Cholestero l: less than 200 mg/dLBorderline High Cholesterol: 200-239 mg/dLHigh Cholesterol: greater than 239 mg/dL LDL Cholesterol Calculated 102(H) <100 mg/dL [facility] Comment:Desirable LDL: less than 100 mg/dLNear Optimal/Above Optimal LDL: 110- 129 mg/dLBorderline High LDL: 130-159 mg/dLHigh LDL: 160-189 mg/dLVery High LDL: greater than or equal to 190 mg/dL HDL Cholesterol 50 >40 mg/dL [facility] Comment:Desirable HDL: great er than 40 mg/dL Note: This HDL assay may give artificially low results in patients with liver disease. Blood Venous blood specimen / Unknown 12/18/2024 12:08 PM EDT 12/18/2024 1:10 PM EDT Madyson Jackson [employer] [facility] BLOOD ORDERABLES Final Resu lt Performing Organization Address City/[facility]/ZIP Co de Phone Number [facility] [address] [place] [address] [phone] * (ABNORMAL) Basic Metabolic Panel (12/18/2024 12:08 PM EDT) Sodium 137 135 - 145 mmol/L [facility] Potassium 3.7 3.3 - 5.1 mmol/L [facility] Chloride 105 96 - 108 mmol/L [facility] Carbon Dioxide 25 22 - 29 mmol/L [facility] Anion Gap 11(L) 12 - 20 [facility] Urea Nitrogen (BUN) 7(L) 9 - 16 mg/dL [facility] Creatinine, Serum 0.65 0.5 - 1.4 mg/dL [facility] Estimated Glomerular Filt Rate >60 [facility] Comment:Chronic Kidney Disea se: Estimated GFR < 60 mL/min/1.78d2Ipqqli Kidney Disease: Estimated GFR < 15 mL/min/1.73m2 Glucose 92 60 - 115 mg/dL [facility] Calcium 9.4 8.4 - 10.2 mg/dL [facility] Blood Venous blood specimen / Unknown 12/18/2024 12:08 PM EDT 12/18/2024 1:10 PM EDT Madyson Jackson [employer] [facility] BLOOD ORDERABLES Final Resu lt Performing Organization Address City/[facility]/ZIP Co de Phone Number [facility] [address] [place] [address] [phone] from Last [address] [place] [address] [place] [address] C3 Care Teams Filter Cloth Maker Relationship Specialty Start Date End Date Madyson Sharma NP [address] [place] [phone] PCP - General Family Medicine 04/20/24
--- OUTSIDE RECORDS SUMMARY | 2024-12-18 14:50 | XMS_ITS | Encounter Summary ---
Author Organization [facility] Address [address] [place] [address] Care Team Providers Care Rn Transfer Name Role Phone Madyson Sharma TUSHAR Primary Care Provider [phone] Encounter Details Date Type Department Care Team (Latest Contact Info) Description 12/17/2024 Travel Social History Tobacco Use Types Packs/Day Years [...] Description 03/20/2025 9:30 AM EDT Office Visit [facility] MEDICINE [address] [place] [address] Madyson Sharma NP [address] [place] [address] documented as of this encounter Visit Diagnoses Not on filedocumented in this encounter Additional Health Concerns Assessment Noted Time PHQ-9 Depression Total Score: 16 025 2:39 PM EDT documented as of this encounter Care Teams Rn Transfer Relationship Specialty Start Date End Date Madyson Sharma NP [address] [place] [address] PCP - General Family Medicine 04/20/24 documented as of this encounter
[2024-12-19 08:21] LABS: HBS Num1 23.42 mIU/mL (0-7.99); HBc Num1 0.15 S/CO (0.00-0.79); HBsAGNum1 0.47 S/CO (0.00-0.99); HIV AB/AG Nonreactive (Nonreactive); HIV Num 1 0.08 S/CO (0.00-0.99); Hepatitis B Core Antibody Nonreactive (Nonreactive); Hepatitis B Surface Antigen Negative (Negative); ~HepC Num1 0.19 S/CO (0.00-0.79); ~Hepatitis B Surface Antibody REACTIVE (Nonreactive); ~Hepatitis C Antibody Nonreactive (Nonreactive)
== END 2024-12-18 12:07 | disposition home or self-care (01) ==
LOC: HO.HHCL 12:06
PROVIDERS: Visit Provider Nurse Practitioner
DX: E66.3 Overweight (principal); Z13.9 Encounter for screening, unspecified; Z11.59 Encounter for screening for other viral diseases
CPT/HCPCS: 36415; 80048; 80061; 86704; 86706; 86803; 87340; 87389